=== PATIENT | male | born 1950 | race Caucasian/White ===

== ENCOUNTER 2023-10-04 17:17 | Emergency (ER) | payer MEDICARE, SELFPAY ==
[2023-10-04 17:21] VITALS: BP 157/71; PULSE 87; RESP 18; TEMP 37.2; O2SAT 96; BMI 38.5
--- NOTE | 2023-10-04 17:26 | XR_ITS ---
The [address] [address] Patient Name: DUSTIN BIANCHI MRN: [id number] date: 1950 Sex: M Assigned Patient Location: ED.MAIN Current Patient Location: ER Accession/Order Number: [id number] Exam Date: 10/04/2023 18:30 Report Date: 10/04/2023 19:46 At the request of: VICENTE ALEX Procedure: XR knee RT 3V IMAGES REVIEWED: XR knee RT 3V COMPARISON: None available. CLINICAL INDICATION: pain FINDINGS/IMPRESSION: No radiographic evidence of acute osseous abnormality of the right knee. Nonspecific suprapatellar effusion appears to be present. Moderate diffuse soft tissue swelling of the right knee-leg. 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 Peripheral arterial disease. Electronically authenticated by: TOPHER MENDOSA Date: 10/04/2023 19:46
--- NOTE | 2023-10-04 18:31 | ED.GENADUL1 ---
HPI - General Adult General Chief complaint: Extremity Injury, Lower Stated complaint: r pain Time Seen by Provider: 10/04/23 18:24 Source: patient and family Mode of arrival: walk-in Limitations: no limitations History of Present Illness HPI narrative: 73-year-old male presents for right knee pain. He's had for two days and he points to the medial aspect of the knee. He's had no injury or unusual activity. No unusual ankle pain and no calf pain. He has arthritis in his right lower back. Bearing weight or bending it makes it worse. Related Data Allergies Allergy/AdvReac Type Severity Reaction Status Date / Time No Known Drug Allergies Allergy Verified 10/04/23 17:25 Review of Systems ROS Narrative A ten point review of systems is negative except as noted above. PFSH PFSH Social History Smoking status: Former smoker Exam Narrative Exam Narrative: Nurses note and vital signs reviewed and patient is not hypoxic. General: The patient appears well and in no apparent distress. Patient is resting comfortably on cart. Skin: Warm, dry, no pallor noted. There is no rash noted. Head: Normocephalic, atraumatic Eye: Normal conjunctiva, no drainage Ears, Nose, Mouth, and Throat: oral mucosa is moist. Nares patent. Cardiovascular: Regular Rate and Rhythm Respiratory: Patient is in no distress, no accessory muscle use, lungs are clear to auscultation, no wheezing, rales or rhonchi Back: non-tender GI: soft and nontender Musculoskeletal: the right ankle is not swollen. No calf tenderness or swelling. The right knee is not erythematous or bruised. It is not warm to touch. The knee joint is stable. Neurological: A&O, normal speech Psychiatric: Cooperative Constitutional Vital Signs, click to edit/add: Last Vital Signs Temp 99.0 F 10/04/23 17:21 Pulse 87 10/04/23 17:21 Resp 18 10/04/23 17:21 BP 157/71 H 10/04/23 17:21 Pulse Ox 96 10/04/23 17:21 O2 Del Method Room Air 10/04/23 17:21 Course Vital Signs Vital signs: Vital Signs Temperature 99.0 F 10/04/23 17:21 Pulse Rate 87 10/04/23 17:21 Respiratory Rate 18 10/04/23 17:21 Blood Pressure 157/71 H 10/04/23 17:21 Pulse Oximetry 96 10/04/23 17:21 Oxygen Delivery Method Room Air 10/04/23 17:21 Temperature 99.0 F 10/04/23 17:21 Pulse Rate 87 10/04/23 17:21 Respiratory Rate 18 10/04/23 17:21 Blood Pressure 157/71 H 10/04/23 17:21 Pulse Oximetry 96 10/04/23 17:21 Oxygen Delivery Method Room Air 10/04/23 17:21 Medical Decision Making MDM Narrative Medical decision making narrative: X-rays ordered and the patient is signed out to Dr. Saavedra. Differential Diagnosis Differential Diagnosis: knee strain, effusion, gout Discharge Plan Discharge Patient Disposition: Still a Patient
[2023-10-04] MEDS: PREDNISONE 20 MG TABLET 40 MG PO (20:40)
[2023-10-04] MEDS: KETOROLAC TROMETHAMINE 60 MG/2 ML VIAL IM (21:02)
== END 2023-10-04 21:04 | disposition home or self-care (01) ==
PROVIDERS: Emergency Provider Internal Medicine; PCP Nurse Practitioner
DX: M10.9 Gout, unspecified (principal); E11.9 Type 2 diabetes mellitus without complications; Z87.891 Personal history of nicotine dependence; Z79.85 Long-term (current) use of injectable non-insulin antidiabetic drugs
CPT/HCPCS: 73562; 96372; 99284